=== PATIENT | male | born 1960 | race African-American/Black ===

== ENCOUNTER 2016-11-03 19:42 | Emergency (ER) | payer BC, OTHER ==
[2016-11-03 19:56] VITALS: BP 136/82; PULSE 74; TEMP 98; BMI 27.2
[2016-11-03] MEDS ORDERED: KETOROLAC TROMETHAMINE 60 MG/2 ML VIAL ONE (21:07)
--- NOTE | 2016-11-03 21:12 | PDOC ---
History of Present Illness - General Chief Complaint: Pain Stated Complaint: PAIN RIGHT LEG Time Seen by Provider: 11/03/16 20:29 - History of Present Illness Initial Comments: 11/03/16 21:07 CHIEF COMPLAINT: hip/leg pain HISTORY OF PRESENT ILLNESS: 56 yo M with hx of HTN presents to fast track with pain to R leg. Patient reports that he does heavy lifting at work "all the time " and he thinks he "pulled something" in his hip 3-4 days ago and since then the pain has started radiating down his leg. He denies any neck or back pain, denies any trauma, denies any loss of bowel or bladder function. Patient is ambulatory in fast track. PAST MEDICAL HISTORY: HTN SOCIAL HISTORY:Denies tobacco, alcohol, illicit drug use. SURGICAL HISTORY: Denies ALLERGIES: No known drug allergies REVIEW OF SYSTEMS General/Constitutional: Denies fever or chills. Denies weakness, weight change. Cardiovascular: Denies chest pain or shortness of breath. Respiratory: Denies cough, wheezing, or hemoptysis. Gastrointestinal: Denies nausea, vomiting, diarrhea or constipation. Denies rectal bleeding. Genitourinary: Denies dysuria, frequency, or change in urination. Musculoskeletal: Pain to R hip radiating down leg. Denies neck or back pain. Skin and breasts: Denies rash or easy bruising. PHYSICAL EXAM General Appearance: Well-appearing, appropriately dressed. No apparent distress , no intoxication. HEENT: EOMI, PERRLA. . Respiratory/Chest: Lungs CTAB. . Cardiovascular: RRR. S1, S2. Musculoskeletal/Extremities: Full ROM to all extremities, no tenderness to midline spine, no tenderness to hip or legs b/l. Normal inspection. FROM of all extremities, normal capillary refill. Pelvis Stable. No CVA tenderness. No tenderness to extremities, pedal edema, swelling, erythema or deformity. Integumentary: Appropriate color, dry, warm. No cyanosis, erythema, jaundice or rash Neurologic: programmer II-XII intact. Fully oriented, alert. Appropriate mood/affect. Motor strength 5/5. No appreciable EOM palsy, facial droop or sensory deficit. Past History - Past Medical History Allergies/Adverse Reactions: Allergies Allergy/AdvReac Type Severity Reaction Status Date / Time No Known Allergies Allergy Verified 11/03/16 19:56 Home Medications: Ambulatory Orders Metoprolol Tartrate [Lopressor] 50 mg PO DAILY #7 tablet 07/20/14 Naproxen [Naprosyn -] 500 mg PO BID PRN #14 tablet 07/20/14 Naproxen [Naprosyn -] 500 mg PO BID #14 tablet 11/03/16 HTN: Yes Suicide Attempt (Hx): No - Psycho/Social/Smoking Cessation Hx Anxiety: No Suicidal Ideation: No Smoking History: Never smoked Hx Alcohol Use: No Substance Use Type: None *Physical Exam - Vital Signs Last Vital Signs Temp Pulse Resp BP Pulse Ox 98 F 74 18 136/82 99 11/03/16 19:51 11/03/16 19:51 11/03/16 19:51 11/03/16 19:51 11/03/16 19:51 Medical Decision Making - Medical Decision Making 11/03/16 21:14 56 yo M with hx of HTN presents to fast track with pain to R leg. -60 mg Toradol Advised patient to take medications as prescribed. Advised patient to f/u with ortho if symptoms do not improve and of signs and symptoms for return to ER; patient verbalized understanding and agrees to plan. *DC/Admit/Observation/Transfer Diagnosis at time of Disposition: Leg pain Qualifiers: Laterality: right Qualified Code(s): M79.604 - Pain in right leg - Discharge Dispostion Admit: No - Prescriptions Prescriptions: Naproxen [Naprosyn -] 500 mg PO BID #14 tablet - Referrals Referrals: Bogdan Rucker MD [Primary Care Provider] - Anival Buodreaux MD [Staff Physician] - - Patient Instructions Printed Discharge Instructions: DI for Leg Pain Additional Instructions: Please take medication as prescribed. As discussed, if your symptoms do not improve in 5-7 days, please follow up with an orthopedics for further evaluation and a possible MRI or physical therapy. If you experience any loss of sensation to your extremities, any loss of bowel or bladder function, any swelling or increased pain to your leg, please return to the ER.
== END 2016-11-03 21:14 | disposition home or self-care (01) ==
LOC: JERFT 19:42
DX: M79.604 Pain in right leg (principal); I10 Essential (primary) hypertension
CPT/HCPCS: 99281-25

== ENCOUNTER 2017-10-08 10:07 | Emergency (ER) | payer BC, OTHER ==
[2017-10-08 10:13] VITALS: BP 140/86; PULSE 69; TEMP 97.7; BMI 26.2
--- NOTE | 2017-10-08 10:59 | PDOC ---
History of Present Illness - General Chief Complaint: Headache Stated Complaint: HEADACHE Time Seen by Provider: 10/08/17 10:45 History Source: Patient Exam Limitations: No Limitations - History of Present Illness Initial Comments: 57-year-old male with a past medical history significant for hypertension. Presents for evaluation of headache 1 month he describes a left-sided occipital headache worsen nighttime without any exacerbating or relieving factors. He denies any other associated symptoms. No fever chills night sweats nausea vomiting visual changes. 10/08/17 10:56 Past History - Past Medical History Allergies/Adverse Reactions: Allergies Allergy/AdvReac Type Severity Reaction Status Date / Time No Known Allergies Allergy Verified 10/08/17 10:13 Home Medications: Ambulatory Orders Metoprolol Tartrate [Lopressor] 50 mg PO DAILY #7 tablet 07/20/14 COPD: No HTN: Yes - Immunization History Immunization Up to Date: Yes - Suicide/Smoking/Psychosocial Hx Smoking History: Never smoked Hx Alcohol Use: Yes Drug/Substance Use Hx: No Substance Use Type: None Review of Systems - Review of Systems Neurological: Yes: See HPI, Headache All Other Systems: Reviewed and Negative *Physical Exam - Vital Signs Last Vital Signs Temp Pulse Resp BP Pulse Ox 97.7 F 69 18 140/86 99 10/08/17 10:09 10/08/17 10:09 10/08/17 10:10/08/17 10:10/08/17 10:09 - Physical Exam Comments: GENERAL: The patient is awake, alert, and fully oriented, in no acute distress. HEAD: Normal with no signs of trauma. EYES: Pupils equal, round and reactive to light, extraocular movements intact, sclera anicteric, conjunctiva clear. ENT: Ears normal, nares patent, oropharynx clear without exudates. Moist mucous membranes. NECK: Normal range of motion, supple without lymphadenopathy, JVD, or masses. LUNGS: Breath sounds equal, clear to auscultation bilaterally. No wheezes, and no crackles. HEART: Regular rate and rhythm, normal S1 and S2 without murmur, rub or gallop. ABDOMEN: Soft, nontender, normoactive bowel sounds. No guarding, no rebound. No masses. EXTREMITIES: Normal range of motion, no edema. No clubbing or cyanosis. No cords, erythema, or tenderness. NEUROLOGICAL: Cranial nerves II through XII grossly intact. Normal speech, normal gait. PSYCH: Normal mood, normal affect. SKIN: Warm, Dry, normal turgor, no rashes or lesions noted. 10/08/17 10:57 ED Treatment Course - RADIOLOGY Radiology Studies Ordered: Category Date Time Status HEAD CT WITHOUT CONTRAST [CT] Stat CT Scan 10/08/17 10:49 Ordered Medical Decision Making - Medical Decision Making 57-year-old male with new-onset headache 1 month CAT SCAN to rule out any organic causes and treat his pain most likely follow-up with neurology. 10/08/17 10:58 10/08/17 12:00 Patient's headache improved after Toradol I will have her follow-up with the neurology. Since she is on a JOSE inhibitor for blood pressure I will have him take Tylenol for pain at this point *DC/Admit/Observation/Transfer Diagnosis at time of Disposition: Headache - Discharge Dispostion Disposition: HOME Condition at time of disposition: Improved Decision to Admit order: No - Referrals Referrals: ON STAFF,NOT [Primary Care Provider] - Carl Capps MD [Staff Physician] - - Patient Instructions Printed Discharge Instructions: DI for Headache Additional Instructions: Please follow-up with neurology in the next 1-2 days for further evaluation and treatment options in the meantime since you take high blood pressure medication he only real medication he can take right now for your headaches is Tylenol unless directed by neurology - Post Discharge Activity
[2017-10-08] MEDS ORDERED: RANITIDINE HCL 150 MG TABLET (FP) PO ONE (11:46)
[2017-10-08] MEDS ORDERED: KETOROLAC TROMETHAMINE 60 MG/2 ML VIAL IM ONE (11:46)
[2017-10-08] MEDS ORDERED: RANITIDINE HCL 150 MG TABLET (FP) ONE (11:48)
[2017-10-08] MEDS ORDERED: KETOROLAC TROMETHAMINE 60 MG/2 ML VIAL ONE (11:48)
== END 2017-10-08 12:04 | disposition home or self-care (01) ==
LOC: JERFT 10:07
PROC: 3E0233Z Introduction of Anti-inflammatory into Muscle, Percutaneous Approach (ICD-10-PCS; principal; 2017-10-08)
DX: R51 Headache (principal); I10 Essential (primary) hypertension
CPT/HCPCS: 70450-TC; 99281-25

== ENCOUNTER 2019-05-07 14:32 | Emergency (ER) | payer BC, OTHER ==
[2019-05-07 14:54] VITALS: BP 173/77; PULSE 69; TEMP 98; BMI 27.5
--- NOTE | 2019-05-07 14:54 | PDOC ---
Rapid Medical Evaluation Chief Complaint: Laceration Time Seen by Provider: 05/07/19 14:52 Medical Evaluation: Allergies Allergy/AdvReac Type Severity Reaction Status Date / Time No Known Allergies Allergy Verified 10/08/17 10:13 05/07/19 14:52 I have performed a brief in-person evaluation of this patient. The patient presents with a chief complaint of:laceration to left ring finger with a kitchen knife while cooking . pt report last tetanus vaccine a year ago Pertinent physical exam findings: A&O x 3 in NAD I have ordered the following: nothing The patient will proceed to the ED for further evaluation. Discharge Disposition - Diagnosis Laceration of left ring finger - Discharge Dispostion Condition at time of disposition: Stable - Referrals - Patient Instructions - Post Discharge Activity
[2019-05-07] MEDS ORDERED: IBUPROFEN 600 MG TABLET (FP) PO ONE ×2 (16:44→16:51)
--- NOTE | 2019-05-07 16:44 | PDOC ---
History of Present Illness - General Chief Complaint: Laceration Stated Complaint: LACERATION Time Seen by Provider: 05/07/19 14:52 History Source: Patient Exam Limitations: No Limitations - History of Present Illness Initial Comments: 05/07/19 16:41 59-year-old male [id number] history of hypertension presents with laceration to right fourth digit sustained 2 to 3 hours ago while cutting peppers with a sharp knife. Denies any other injury or complaints. Last tetanus 4 years ago. ROS: GENERAL/CONSTITUTIONAL: No fever, chills, weakness, dizziness HEAD, EYES, EARS, NOSE AND THROAT: No changes in vision, No ear pain or discharge, No sore throat CARDIOVASCULAR: No chest pain RESPIRATORY: No shortness of breath or cough GASTROINTESTINAL: No pain, nausea, vomiting, diarrhea or constipation GENITOURINARY: No dysuria MUSCULOSKELETAL: No neck or back pain SKIN: Laceration to right fourth digit, no rash NEUROLOGIC: No headache, vertigo, loss of consciousness, or loss of sensation PE: GENERAL: well-appearing, NAD HEAD: NCAT EYES: Pupils equal, round and reactive to light, sclera anicteric, conjunctiva clear ENT: pharynx: no erythema, no exudate, uvula midline NECK: supple CHEST: nontender RESP: clear, no w/r/r CARDIO: rrr, no m/g/r ABD: +BS, soft, nontender, non distended BACK: no midline spinal ttp, no CVAT EXTREMITIES: Normal range of motion, no edema NEUROLOGICAL: Normal speech, normal gait SKIN: Approximately 1 cm skin avulsion with arterial bleed to tip of right fourth digit, warm, Dry Past History - Past Medical History Allergies/Adverse Reactions: Allergies Allergy/AdvReac Type Severity Reaction Status Date / Time No Known Allergies Allergy Verified 05/07/19 14:54 Home Medications: Ambulatory Orders Metoprolol Tartrate [Lopressor] 50 mg PO DAILY #7 tablet 07/20/14 COPD: No HTN: Yes - Immunization History Immunization Up to Date: Yes - Psycho Social/Smoking Cessation Hx Smoking History: Never smoked Hx Alcohol Use: Yes Drug/Substance Use Hx: No Substance Use Type: None *Physical Exam - Vital Signs Last Vital Signs Temp Pulse Resp BP Pulse Ox 98 F 69 18 173/77 H 98 05/07/19 14:50 05/07/19 14:50 05/07/19 14:50 05/07/19 14:50 05/07/19 14:50 Medical Decision Making - Medical Decision Making 05/07/19 16:43 59-year-old male [id number] presents with skin avulsion with arterial bleed to tip of left fourth digit. Absorbable sutures placed Bleeding controlled Surgicel and pressure dressing applied P.o. ibuprofen given Return precautions advised 05/07/19 17:06 Patient stable for discharge Discharge - Discharge Information Problems reviewed: Yes Clinical Impression/Diagnosis: Laceration of left ring finger Condition: Stable Disposition: HOME - Admission No - Follow up/Referral Referrals: Bogdan Rucker MD [Primary Care Provider] - - Patient Discharge Instructions - Post Discharge Activity
--- NOTE | 2019-05-07 17:12 | PDOC ---
*Physical Exam - Vital Signs Last Vital Signs Temp Pulse Resp BP Pulse Ox 98 F 69 18 173/77 H 98 05/07/19 14:50 05/07/19 14:50 05/07/19 14:50 05/07/19 14:50 05/07/19 14:50 ED Treatment Course - Medications Given in the ED: ED Medications Discontinued Medications Generic Name Dose Route Start Last Admin Trade Name Tiffany PRN Reason Stop Dose Admin Ibuprofen 600 mg 05/07/19 16:44 05/07/19 16:56 Motrin - PO 05/07/19 16:45 600 mg ONCE ONE Administration Discharge - Discharge Information Problems reviewed: Yes Clinical Impression/Diagnosis: Laceration of left ring finger Condition: Stable Disposition: HOME - Follow up/Referral Referrals: Bogdan Rucker MD [Primary Care Provider] - - Patient Discharge Instructions - Post Discharge Activity Procedures - Consent Consent obtained: Verbal - Laceration/Wound Repair Left 4th digit Wound Length: to 2.5 cm Wound Explored: clean Wound's Depth, Shape: superficial (avulsion) Irrigated w/ Saline: Yes Anesthesia: 1% Lidocaine Amount of Anesthetic (ccs): 3 Suture Size/Type: other (absorbable sut) Number of Sutures: 3 (absorbable sutures placed) Layer Closure: No Sterile Dressing Applied: Yes Splint Applied: No Sling Applied: No Progress: 05/07/19 17:10 avulsion to tip of 4th finger active bleeding 3 absorbable sutures placed surgicel and pressure dressing applied
== END 2019-05-07 17:18 | disposition home or self-care (01) ==
LOC: JERFT 14:32
PROC: 0HQGXZZ Repair Left Hand Skin, External Approach (ICD-10-PCS; principal; 2019-05-07)
DX: S61.215A Laceration without foreign body of left ring finger without damage to nail, initial encounter (principal); W26.0XXA Contact with knife, initial encounter; Y93.G3 Activity, cooking and baking; Y92.030 Kitchen in apartment as the place of occurrence of the external cause; Y99.8 Other external cause status
CPT/HCPCS: 99283-25

== ENCOUNTER 2023-10-29 09:31 | Emergency (ER) | payer BC ==
[2023-10-29 09:45] VITALS: BP 188/98; PULSE 75; RESP 18; TEMP 98; BMI 26.9
[2023-10-29] MEDS ORDERED: LIDOCAINE 5% TOPICAL PATCH ONE (10:01)
[2023-10-29] MEDS ORDERED: KETOROLAC TROMETHAMINE 30 MG/1 ML VIAL ONE (10:01)
[2023-10-29] MEDS: KETOROLAC TROMETHAMINE 30 MG/1 ML VIAL IM ONE (10:08)
[2023-10-29] MEDS: LIDOCAINE 4% PATCH TP ONE (10:09)
[2023-10-29] MEDS ORDERED: LIDOCAINE PATCH REMOVAL MC ONE (22:00)
== END 2023-10-29 12:39 | disposition home or self-care (01) ==
LOC: JERFT 09:31
PROC: 3E0133Z Introduction of Anti-inflammatory into Subcutaneous Tissue, Percutaneous Approach (ICD-10-PCS; principal; 2023-10-29)
DX: M25.552 Pain in left hip (principal); W19.XXXA Unspecified fall, initial encounter
CPT/HCPCS: 72170-TC-FY; 99284-25

== ENCOUNTER 2023-11-25 06:35 | Emergency (ER) | payer BC ==
[2023-11-25 06:45] VITALS: BP 155/95; PULSE 80; RESP 18; TEMP 98; BMI 26.9
[2023-11-25] MEDS ORDERED: KETOROLAC TROMETHAMINE 30 MG/1 ML VIAL ONE (07:55)
[2023-11-25] MEDS ORDERED: METHOCARBAMOL 500 MG TABLET ONE (07:55)
[2023-11-25] MEDS: METHOCARBAMOL 500 MG TABLET PO ONE (08:01)
[2023-11-25] MEDS: KETOROLAC TROMETHAMINE 30 MG/1 ML VIAL IM ONE (08:02)
[2023-11-25] MEDS ORDERED: ACETAMINOPHEN 325 MG TABLET (FP) ONE (10:47)
[2023-11-25] MEDS ORDERED: predniSONE 20 MG TABLET (UD) ONE (10:47)
[2023-11-25] MEDS: predniSONE 20 MG TABLET (UD) PO ONE (10:51)
[2023-11-25] MEDS: ACETAMINOPHEN 325 MG TABLET (FP) PO ONE (10:51)
== END 2023-11-25 10:50 | disposition home or self-care (01) ==
LOC: JER 06:35 → JERFT 06:35
PROC: 3E0133Z Introduction of Anti-inflammatory into Subcutaneous Tissue, Percutaneous Approach (ICD-10-PCS; principal; 2023-11-25)
DX: M79.671 Pain in right foot (principal); M46.96 Unspecified inflammatory spondylopathy, lumbar region; M79.661 Pain in right lower leg
CPT/HCPCS: 72131-TC; 93971-TC; 99284-25

== ENCOUNTER 2023-11-29 07:54 | Emergency (ER) | payer BC ==
[2023-11-29 08:04] VITALS: RESP 18; TEMP 97.8; BMI 27.7
[2023-11-29 08:54] VITALS: BP 169/91; PULSE 61
[2023-11-29] MEDS ORDERED: KETOROLAC TROMETHAMINE 30 MG/1 ML VIAL ONE (08:55)
[2023-11-29] MEDS: KETOROLAC TROMETHAMINE 30 MG/1 ML VIAL IM ONE (09:04)
== END 2023-11-29 09:19 | disposition home or self-care (01) ==
LOC: JER 07:54
PROC: 3E0233Z Introduction of Anti-inflammatory into Muscle, Percutaneous Approach (ICD-10-PCS; principal; 2023-11-29)
DX: M54.42 Lumbago with sciatica, left side (principal)
CPT/HCPCS: 99284-25